=== PATIENT | female | born 1970 | race Caucasian/White ===

== ENCOUNTER 2019-05-14 14:33 | Emergency (ER) | payer SELFPAY ==
[~2019-05-14] VITALS: Ht 160 cm; Wt 61.4 kg
[2019-05-14 17:07] VITALS: Ht 160 cm; Wt 61.4 kg
[2019-05-14] MEDS ORDERED: HYDROXYZINE HCL50 MG PO (17:10)
[2019-05-14] MEDS ORDERED: TALWIN NX1 TAB PO (21:24)
[2019-05-14] MEDS ORDERED: CYCLOBENZAPRINE10 MG PO (21:24)
[2019-05-14 21:39] VITALS: BP 134/77
== END 2019-05-14 21:46 | disposition home or self-care (01) ==
LOC: D.ER 14:33
DX: M54.2 Cervicalgia (principal); M62.838 Other muscle spasm; V43.62XA Car passenger injured in collision with other type car in traffic accident, initial encounter; F17.210 Nicotine dependence, cigarettes, uncomplicated